=== PATIENT | male | born 1955 | race Caucasian/White ===

== ENCOUNTER → 2017-08-17 | Outpatient (CLI) | payer BC ==
[~2017-08-17] MED LIST: ATEN50TA PO
--- NOTE | 2017-08-17 12:15 | Diagnostic Imaging Report ---
INDICATION: History of carcinoid of the lung. TECHNIQUE: PA and lateral views of the chest were obtained at 1203 hours. COMPARISON: There is no prior study for comparison. FINDINGS: The heart and mediastinal silhouette are unremarkable. There are surgical clips in the right hilum with surgical sutures in the adjacent right lung. There is some volume loss in the right lung with elevation of the right hemidiaphragm. There is no focal infiltrate, pneumothorax, or pleural fluid. IMPRESSION: Postsurgical changes in the right hilar region with volume loss in the right lung. No acute infiltrate, pneumothorax, or pleural fluid. Dictated on workstation # [id number]
== END ==
LOC: RAD 11:25
PROVIDERS: ATTEND Internal Medicine
DX: Z85.118 Personal history of other malignant neoplasm of bronchus and lung (principal); Z98.890 Other specified postprocedural states
CPT/HCPCS: 71020

== ENCOUNTER → 2020-10-12 | Outpatient (CLI) | payer MEDICARE, OTHER ==
--- NOTE | 2020-10-12 11:54 | Diagnostic Imaging Report ---
EXAMINATION: Chest 2 view HISTORY: Iritis. Evaluate for underlying pulmonary condition. History of carcinoid of the lung. COMPARISON: 08/17/2017. FINDINGS: Stable volume loss in the right hemithorax. No focal consolidation is seen. No large pleural effusion or pneumothorax is seen. The cardiomediastinal silhouette is normal in size and contour. Surgical clips in the right hilum are stable in appearance. No acute osseous abnormality is seen. IMPRESSION: 1. Stable chest without evidence of focal consolidation or pleural effusion. No pulmonary masses. Dictated by: Dictated on workstation # [id number]
== END ==
LOC: RAD 10:54
DX: H20.022 Recurrent acute iridocyclitis, left eye (principal); Z85.110 Personal history of malignant carcinoid tumor of bronchus and lung; Z98.890 Other specified postprocedural states
CPT/HCPCS: 71046

== ENCOUNTER → 2022-01-06 | Outpatient (CLI) | payer MEDICARE, OTHER ==
--- NOTE | 2022-01-06 14:25 | Diagnostic Imaging Report ---
PROCEDURE: US carotid duplex, bilateral. INDICATION: 66-year-old male, hypertension, dizziness. TECHNIQUE: Multiple real-time grayscale images were obtained over the carotid arteries in various projections bilaterally. Additional spectral analysis and color Doppler and Duplex images were also obtained. CORRELATION: None FINDINGS: There is mild to moderate atherosclerotic plaque throughout the bilateral common carotid arteries carotid bulbs as well as internal and external carotid arteries. Right carotid circulation: The right common carotid artery is normal in course and caliber. The right internal carotid artery is patent. No hemodynamically significant stenosis is present at this time. Right external carotid artery is patent. Left carotid circulation: The left common carotid artery is normal in course and caliber. The left internal carotid artery is patent. No hemodynamically significant stenosis is present at this time. Left external carotid artery is patent. Antegrade flow in the bilateral vertebral arteries. Incidental note of a nodule left thyroid gland. DOPPLER (peak systolic velocity M/S Right Left CCA .72 .98 ICA Proximal .92 .49 ICA Mid .79 .82 ICA Distal .81 .79 RATIO 1.28 .84 ECA 1.21 .91 VERT .57 .49 IMPRESSION: 1. Mild to moderate atherosclerosis involving bilateral carotid arteries. 2. No sonographic evidence to suggest a hemodynamically significant stenosis of the internal carotid arteries at this time. 3. Left thyroid nodule. Correlation with dedicated thyroid ultrasound imaging is recommended. Parameters based on the consensus panel Mariee-Scale and Doppler ultrasound criteria published July 2003, Radiology, Volume 229. Dictated by: Dictated on workstation # [id number]
== END ==
LOC: RAD 13:00
PROVIDERS: ATTEND Nurse Practitioner Family
DX: I65.23 Occlusion and stenosis of bilateral carotid arteries (principal); I10 Essential (primary) hypertension; E04.1 Nontoxic single thyroid nodule
CPT/HCPCS: 93880

== ENCOUNTER → 2022-01-13 | Outpatient (CLI) | payer MEDICARE, OTHER ==
--- NOTE | 2022-01-13 10:57 | Diagnostic Imaging Report ---
PROCEDURE: US Thyroid. TECHNIQUE: Multiple real-time grayscale images were obtained of the thyroid in various projections. INDICATION: Thyroid nodules. FINDINGS: Right lobe of thyroid measures 6.0 x 2.4 x 2.0 cm and left lobe measures 6.5 x 1.8 x 2.3 cm. Isthmus is 3 mm in thickness. The right lobe of the thyroid contains a small hypoechoic nodule in the mid lower aspect measuring 5 mm x 3 mm x 2 mm. There are several nodules in the left lobe of the thyroid. The largest is in the lower pole measuring 1.2 x 0.9 x 0.5 cm. There are at least 2 subcentimeter nodules as well in the left lobe. IMPRESSION: Bilateral thyroid nodules, largest on the left. A follow-up thyroid ultrasound in 6-12 months would be recommended to show continued stability. Dictated by: Dictated on workstation # [id number]
== END ==
LOC: RAD 09:00
PROVIDERS: ATTEND Nurse Practitioner Family
DX: E04.1 Nontoxic single thyroid nodule (principal)
CPT/HCPCS: 76536

== ENCOUNTER → 2022-01-27 | Outpatient (CLI) | payer MEDICARE, OTHER | LOC: CARD 12:00 | PROVIDERS: ATTEND Internal Medicine Cardiovascular Disease | DX: I51.7 Cardiomegaly (principal) | CPT/HCPCS: 93225; 93226; 93306 ==

== ENCOUNTER → 2022-01-31 | Outpatient (CLI) | payer MEDICARE, OTHER ==
[~2022-01-31] VITALS: Ht 180 cm; Wt 96.0 kg
[~2022-01-31] MED LIST changes: +CATHETER FLUSH 10 ML SYR IVP PRN; +REGADENOSON 0.4 MG/5 ML SYR (LEXISCAN) IV ONE
== END ==
LOC: CARD 07:30
PROVIDERS: ATTEND Internal Medicine Cardiovascular Disease
DX: R55 Syncope and collapse (principal)

== ENCOUNTER → 2022-03-04 | Outpatient (CLI) | payer MEDICARE, OTHER ==
[~2022-03-04] MED LIST changes: -CATHETER FLUSH 10 ML SYR IVP PRN; -REGADENOSON 0.4 MG/5 ML SYR (LEXISCAN) IV ONE
[2022-03-04 13:48] VITALS: BP 156/86
== END ==
LOC: CARD 14:00
PROVIDERS: ATTEND Nurse Practitioner Family
DX: R55 Syncope and collapse (principal)

== ENCOUNTER → 2022-06-30 | Outpatient (CLI) | payer MEDICARE, OTHER ==
--- NOTE | 2022-06-30 11:59 | Diagnostic Imaging Report ---
PROCEDURE: US Thyroid. TECHNIQUE: Multiple real-time grayscale images were obtained of the thyroid in various projections. INDICATION: Thyroid nodule. COMPARISON: 01/13/2022. FINDINGS: Right thyroid lobe: The right thyroid lobe measures 5.1 x 1.8 x 2.3 cm. In the mid right thyroid, there is an unchanged hypoechoic, mixed cystic and solid nodule with no echogenic foci and is wider than tall with a maximal dimension of 0.4 cm (TI RADS 3). No new nodules within the right thyroid lobe. Isthmus: The thyroid isthmus measures 0.4 cm and has a hypoechoic wider than tall nodule that is 0.4 cm that is unchanged (TI RADS 3). Left thyroid lobe: The left thyroid lobe measures 5.3 x 1.8 x 2.1 cm. There are two adjacent nodules in the lower pole of the left thyroid. The more anterior nodule is solid, isoechoic, has ill-defined margins and no echogenic foci measuring 1.3 cm, previously 1.2 cm, and is compatible with TI RADS 3. The adjacent mixed solid and cystic nodule is stable in size, isoechoic and has no echogenic foci (TI RADS 2). IMPRESSION:Bilateral thyroid nodules are stable. The most suspicious nodule is in the lower pole and given that it is less than 1.5 cm in size, no dedicated follow-up imaging is required. ACR TI-RADS: TR3 . TI-RADS Recommendations:TR3 - Mildly Suspicious. FNA if > 2.5 cm. Follow if > 1.5 cm at 1, 3, 5 years. Dictated by: Dictated on workstation # [id number]
== END ==
LOC: RAD 08:00
PROVIDERS: ATTEND Otolaryngology Otolaryngology/Facial Plastic Surgery
DX: E04.2 Nontoxic multinodular goiter (principal)
CPT/HCPCS: 76536

== ENCOUNTER → 2023-07-15 | Outpatient (CLI) | payer MEDICARE, OTHER ==
--- NOTE | 2023-07-15 16:53 | Diagnostic Imaging Report ---
PROCEDURE: US Thyroid. TECHNIQUE: Multiple real-time grayscale images were obtained of the thyroid in various projections. INDICATION: Multinodular goiter COMPARISON: 06/30/2022 FINDINGS: Right thyroid lobe: The right thyroid lobe measures 5.8 x 2.0 x 2.0 cm. No hypervascularity is present. The 0.4 cm mildly suspicious nodule in the mid right thyroid lobe is stable in appearance. Isthmus: The thyroid isthmus measures 0.5 cm and has no suspicious nodule. The 0.4 cm nodule within the isthmus is unchanged. Left thyroid lobe: The left thyroid lobe measures 6.2 x 1.9 x 2.1 cm. No hypervascularity is present. The isoechoic solid nodule in the lower pole of the left thyroid has no echogenic foci and ill-defined margins. There are differences in measurement technique by the technologist, although there is suggestion of this nodule increased in size to 1.9 cm, previously 1.3 cm. IMPRESSION:The mildly suspicious nodule in the lower pole of the left thyroid has potentially increased in size since prior examination, although there are differences in measurement technique by the technologist. Therefore, followup ultrasound in 12 months is advised to reassess for stability. ACR TI-RADS: TR3 . TI-RADS Recommendations:TR3 - Mildly Suspicious. FNA if > 2.5 cm. Follow if > 1.5 cm at 1, 3, 5 years. Dictated by: Dictated on workstation # [id number]
== END ==
LOC: RAD 08:51
PROVIDERS: ATTEND Otolaryngology Otolaryngology/Facial Plastic Surgery
DX: E04.2 Nontoxic multinodular goiter (principal)
CPT/HCPCS: 76536